=== PATIENT | female | born 1995 | race Caucasian/White ===

== ENCOUNTER 2022-04-20 17:00 | Emergency (ER) | payer MEDICAID ==
[~2022-04-20] VITALS: Ht 157.5 cm; Wt 79.4 kg
[2022-04-20 17:16] VITALS: BP 127/76
[2022-04-20 18:11] LABS: BASOPHILS % (AUTO) 0.2 % (0.0-2.0); EOSINOPHILS # (AUTO) 0.1 K/uL (0-0.4); EOSINOPHILS % (AUTO) 1.3 % (0.0-4.0); HEMATOCRIT 41.1 % (36-48); HEMOGLOBIN 13.4 g/dL (12.0-16.0); LYMPHOCYTES # (AUTO) 2.2 K/uL (2.5-16.5); MEAN CORPUSCULAR HEMOGLOBIN 29 pg (27-31); MEAN CORPUSCULAR HGB CONC 33 g/dL (33-37); MEAN CORPUSCULAR VOLUME 88.2 fL (80-94); MONOCYTES # (AUTO) 0.6 K/uL (0.8-1.0); MONOCYTES % (AUTO) 7.6 % (1.7-9.3); NEUTROPHILS # (AUTO) 5.4 K/uL (1.8-7.7); NEUTROPHILS % (AUTO) 64.9 % (42.2-75.2); PLATELET COUNT (AUTO) 246 K/uL (140-450); RED BLOOD CELL COUNT(AUTO) 4.66 MIL/uL (4.20-5.40); RED CELL DISTRIBUTION WIDTH 13.9 % (11.6-13.7); WHITE BLOOD COUNT (AUTO) 8.3 K/uL (4.8-10.8)
[2022-04-20 18:27] LABS: ANION GAP 11.8 (8-16); CARBON DIOXIDE 29.6 mmol/L (21-32); CREATININE 0.8 mg/dL (0.6-1.3); POTASSIUM 4.4 mmol/L (3.5-5.1)
[2022-04-20 18:37] LABS: TOTAL BILIRUBIN 0.3 mg/dL (0.0-1.0)
--- NOTE | 2022-04-20 19:18 | NUR ---
Patient ambulated to bed 11.
--- NOTE | 2022-04-20 19:20 | NUR ---
Patient BIB by family from home. C/O RLQ abdominal pain x 1 day. Patient reported, had RLQ abdominal since last night, no N/V/D, Hx Appendectomy (May,) and patient had on and off abdominal pain since.
--- NOTE | 2022-04-20 19:24 | NUR ---
Dr. Snyder examining patient.
[2022-04-20 19:37] LABS: APPEARANCE,URINE CLEAR (CLEAR); BILIRUBIN,URINE NEGATIVE (NEGATIVE); BLOOD, URINE TRACE-I (NEGATIVE); COLOR,URINE YELLOW (YELLOW); LEUKOCYTE ESTERASE ,URINE NEGATIVE (NEGATIVE); NITRITE, URINE NEGATIVE (NEGATIVE); UGLUCOSE NEGATIVE (NEGATIVE)
[2022-04-20 20:14] LABS: RBC,URINE 0-5 /HPF (0-5); WBC,URINE NONE SEEN /HPF (0-5)
[2022-04-20 20:15] LABS: URINE AMORPHOUS URATE 2+ /HPF (None Seen)
--- NOTE | 2022-04-20 20:23 | NUR ---
PT TAKEN TO CT VIA W/C
--- NOTE | 2022-04-20 20:24 | NUR ---
Patient taken to CT scan via wheel chair.
--- NOTE | 2022-04-20 21:49 | NUR ---
Mono rutledge in [facility] - 04/20/22 at [address] Snyder examining patient.
--- NOTE | 2022-04-20 22:48 | NUR ---
Ultrasound at bedside.
--- NOTE | 2022-04-20 23:20 | NUR ---
IV removed, catheter intact and site benign. Applied folded 4x4 gauze and tape to stop bleeding.
--- NOTE | 2022-04-20 23:26 | NUR ---
Patient waited for Ultrasound result in Lobby.
--- NOTE | 2022-04-21 01:42 | NUR ---
dPatient discharged with v/s stable. Written and verbal after care instructions given and explained. Patient verbalized understanding. Ambulatory with steady gait. All questions addressed prior to discharge. Advised to follow up with PMD.
== END 2022-04-21 01:42 | disposition home or self-care (01) ==
LOC: MED 17:00
DX: R10.31 Right lower quadrant pain (principal); R10.2 Pelvic and perineal pain; Z90.49 Acquired absence of other specified parts of digestive tract
CPT/HCPCS: 36415; 74177; 76856; 80053; 81001; 81025; 83690; 85025; 93005; 93976; 99285; Q0092; Q9967

== ENCOUNTER 2023-04-17 20:02 | Emergency (ER) | payer MEDICAID ==
[~2023-04-17] VITALS: Ht 157.5 cm; Wt 79.4 kg
[2023-04-17 20:14] VITALS: BP 146/69
--- NOTE | 2023-04-17 20:14 | NUR ---
PT TO BED #8
[2023-04-17] MEDS ORDERED: CYCL-711 PO (21:17)
[2023-04-17] MEDS ORDERED: IBUP-2213 PO (21:17)
[2023-04-17] MEDS ORDERED: GABA300C PO (21:17)
[2023-04-17] MEDS ORDERED: ACET-10509 PO (21:17)
[2023-04-17 21:27] VITALS: BP 138/64
== END 2023-04-17 21:27 | disposition home or self-care (01) ==
LOC: MED 20:02
DX: M54.31 Sciatica, right side (principal); Z79.899 Other long term (current) drug therapy
CPT/HCPCS: 99283